=== PATIENT | female | born 1935 | race Caucasian/White ===

== ENCOUNTER 2018-05-06 17:12 | Emergency (ER) | payer OTHER ==
[~2018-05-06] VITALS: Ht 157.5 cm; Wt 79.4 kg
[~2018-05-06 17:12] MED LIST: BIMA0.01 EACHEYE; BUPR75TA9 PO; ESCI10TA53 PO; FOLI1TAB6 PO; LISI-646 PO
[2018-05-06 19:20] VITALS: BP 157/74
[2018-05-06] MEDS ORDERED: NEOMYCIN-BACITRACIN-POLYM UNITDOSE PKG TOP OINT TOP ONE (19:45)
== END 2018-05-06 22:10 | disposition home or self-care (01) ==
LOC: ER 17:16
DX: S51.802A Unspecified open wound of left forearm, initial encounter (principal); R51 Headache; E78.5 Hyperlipidemia, unspecified; I10 Essential (primary) hypertension; M10.9 Gout, unspecified; Z88.8 Allergy status to other drugs, medicaments and biological substances; Z88.2 Allergy status to sulfonamides; W18.39XA Other fall on same level, initial encounter; Y93.89 Activity, other specified; Y99.8 Other external cause status; Y92.89 Other specified places as the place of occurrence of the external cause
CPT/HCPCS: 70450; 73090; 99284; A6257